=== PATIENT | male | born 1975 ===

== ENCOUNTER 2016-09-04 14:40 | Outpatient (CLI) | payer OTHER ==
[~2016-09-04 14:40] MED LIST: ALPRAZOLAM0.5 MG PO; AMOXICILLIN500 M1 PO; CYCLOBENZAPRINE10 MG PO; IRON PO; NAPROXEN250 MG PO; NORCO1 TA1 PO; TIZANIDINE HCL4 M1 PO; VITAMIN D-31000 UNIT PO
--- NOTE | 2016-09-04 16:15 | DIAGNOSTIC IMAGING REPORT ---
PROCEDURE: CT THORAX ABD PELVIS W/CONT INDICATION: COLON CANCER, follow-up TECHNIQUE: 125 ml of Isovue 300 injected intravenously and axial images were obtained of the entire thorax, abdomen, and pelvis with sagittal and coronal reformations. COMPARISON: CT chest/abdomen/pelvis 02/28/2016 FINDINGS: THORAX: Status post removal of left subclavian Port-A-Cath. Lungs are clear. Normal airways. No adenopathy or effusion. Normal thoracic aorta. Heart size is normal. No suspicious osseous lesions. ABDOMEN: Liver, gallbladder, pancreas, spleen, adrenal glands, kidneys and abdominal aorta are normal. Nonspecific bowel gas pattern. No adenopathy or free fluid. PELVIS: Stable rectosigmoid day stable anastomosis with presacral and midline upper pelvic surgical clips. No evidence of a suspicious mass, adenopathy or free fluid. Normal appendix. Moderate L5-S1 degenerative changes. No suspicious osseous lesions IMPRESSION: 1. Stable rectosigmoid resection without evidence of tumor recurrence or distant metastases. All CT scans at this facility use dose modulation, iterative reconstruction, and/or weight-based dosing when appropriate to reduce radiation dose to as low as reasonably achievable.
== END 2016-09-04 23:00 ==
LOC: CT SRH 14:40
DX: C18.9 Malignant neoplasm of colon, unspecified (principal)